=== PATIENT | male | born 1945 | race Caucasian/White ===

== ENCOUNTER 2018-06-13 07:08 | Day surgery (SDC) | payer MEDICARE, OTHER ==
[~2018-06-13] VITALS: Ht 172.7 cm; Wt 92.1 kg
[~2018-06-13 07:08] MED LIST: CELE-63 PO; DILT240C63 PO; LEVO75TA6 PO; LOSA100T8 PO; MECL-106 PO; RIVA20TA PO; TAMS0.4C2 PO; TRAM50TA2 PO; UBID300C PO; ZINC100T2 PO
[2018-06-13] MEDS ORDERED: LIDOCAINE PF 2% 5 ML (XYLOCAINE) VIAL INJ ONE (07:09)
[2018-06-13] MEDS ORDERED: LIDOCAINE PF 1% 2 ML VIAL (OR ONLY) IJ ONE (07:09)
[2018-06-13] MEDS ORDERED: LIDOCAINE JELLY 2% (XYLOCAINE) 30 ML TUBE TOP ONE (07:09)
[2018-06-13] MEDS ORDERED: NS IV 500 ML 500 ML IV PRN (07:21)
[2018-06-13 07:25] VITALS: BP 171/91
[2018-06-13] MEDS ORDERED: MIDAZOLAM 2 MG/2 ML (VERSED) VIAL IVP ONE (07:30)
[2018-06-13] MEDS ORDERED: fentaNYL INJECTION 100 MCG/2 ML AMP IVP ONE (07:30)
--- NOTE | 2018-06-13 09:05 | Progress Note-Pre Operative ---
Pre-Operative Progress Note H&P Reviewed The H&P was reviewed, patient examined and no changes noted. Time Seen by Provider: 09:05 Date H&P Reviewed: Jun 13, 2018 Time H&P Reviewed: 09:05 Pre-Operative Diagnosis: ILD JATINDER JAMA DO Jun 13, 2018 09:05
--- NOTE | 2018-06-13 09:05 | Pre-Op Note & Conscious Sedat ---
Pre-Operative Progress Note H&P Reviewed The H&P was reviewed, patient examined and no changes noted. Date H&P Reviewed: Jun 13, 2018 Time H&P Reviewed: 09:05 Pre-Op Diagnosis: ILD Conscious Sedation Pre-Proced Time Reviewed: 09:05 ASA Class: 3 Airway Mallampati Classification: ([place] appropriate class) I. II. III, IV Lungs Heart ASA score ASA 1: a normal healthy patient ASA 2: a patient with a mild systemic disease (mid diabetes, controlled hypertension, obesity ASA 3: a patient with a severe systemic disease that limits activity (angina , COPD, prior Myocardial infarction) ASA 4: a patient with an incapacitating disease that is a constant threat to life (CHF, renal failure) ASA 5: a moribund patient not expected to survive 24 hrs. (ruptured aneurysm) ASA 6: a declared brain patient whose organs are being harvested. For emergent operations, add the letter E after the classification Grade 3 Sedation Plan: Analgesia, Amnesia, Plan communicated to team members, Discussed options with patient/fam, Discussed risks with patient/fam Note The patient is an appropriate candidate to undergo the planned procedure, sedation, and anesthesia. The patient immediately re-assessed prior to indication. JATINDER JAMA DO Jun 13, 2018 09:05
--- NOTE | 2018-06-13 09:06 | Pulmonary Procedures ---
Pulmonary Procedures Date of Procedure Date of Service: Jun 14, 2018 Bronch Bronchoscopy with bronchoalveolar lavage (BAL), transbronchial washes and, brushes. Preop DX ILD Postop DX: same Complications: none After informed consent obtained and formal time out pt was sedated using Fentanyl and Versed. Bronchoscope was advanced through the nare and vocal cords. 1% lidocaine was used to anesthetize vocal cords, epiglottis, franklin, and left/right main stem bronchus. An anatomical tour was undertaken down to the segmental bronchi bilaterally. No endobronchial lesions noted. From the RML a bronchoalveolar lavage (BAL), transbronchial washes and, brushes were obtained. Pt tolerated procedure well. No complications noted. Stat CXR is pending. JATINDER JAMA DO Jun 13, 2018 09:06
[2018-06-13] MEDS ORDERED: MIDAZOLAM 2 MG/2 ML (VERSED) VIAL ONE ×3 (09:27)
[2018-06-13] MEDS ORDERED: fentaNYL INJECTION 100 MCG/2 ML AMP ONE ×2 (09:27)
[2018-06-13 10:15] VITALS: BP 141/78
--- NOTE | 2018-06-13 10:37 | Diagnostic Imaging Report ---
INDICATION: Bronchoscopy. No prior examinations are available for comparison. FINDINGS: There is cardiomegaly and ectasia of thoracic aorta. There is some chronic appearing bibasilar interstitial lung disease. There is no pleural effusion or pneumothorax. Mediastinum is unremarkable. IMPRESSION: Chronic appearing bibasilar interstitial infiltrates. Cardiomegaly and ectasia of the thoracic aorta. Dictated by: Dictated on workstation # [id number]
[2018-06-13 10:45] VITALS: BP 171/91
[2018-06-13 10:50] VITALS: BP 171/91
--- NOTE | 2018-06-13 14:21 | Diagnostic Imaging Report ---
Indication: Lung disease. Findings: Intraoperative fluoroscopy was provided for Dr. Alonso during bronchoscopy. 5 seconds of fluoroscopy was utilized. Impression: Intraoperative fluoroscopy as described. Dictated by: Dictated on workstation # [id number]
== END 2018-06-13 10:50 | disposition home or self-care (01) ==
LOC: ENDO 07:08
PROVIDERS: ATTEND Internal Medicine Critical Care Medicine
DX: J84.9 Interstitial pulmonary disease, unspecified (principal); J98.11 Atelectasis; G47.36 Sleep related hypoventilation in conditions classified elsewhere; I48.91 Unspecified atrial fibrillation; Z79.01 Long term (current) use of anticoagulants
CPT/HCPCS: 71045; 87070; 87101; 87116; 87205; 88112; 88305; 88312; 94640

== ENCOUNTER → 2019-06-17 | Outpatient (CLI) | payer MEDICARE, OTHER ==
[~2019-06-17] MED LIST changes: +CATHETER FLUSH 10 ML SYR IV PRN; -DILT240C63 PO; +DILT240C97 PO; +HOLD METFORMIN - RECEIVED CONTRAST 20 ML VIAL IV SCH; +IOHEXOL 350 MG/ML 100 ML (OMNIPAQUE 350) VIAL IV ONE; +LOSA100T57 PO; -LOSA100T8 PO; +NS 100 ML (IVPB) BAG IV ONE; -RIVA20TA PO; +RIVA20TA2 PO
[2019-06-17 09:51] LABS: BUN/CREATININE RATIO 12; CREATININE SERUM 1.05 MG/DL (0.60-1.30); GFR ESTIMATED > 60
--- NOTE | 2019-06-17 11:15 | Diagnostic Imaging Report ---
PROCEDURE: CT chest with contrast only. TECHNIQUE: Multiple contiguous axial images were obtained through the chest after administration of intravenous contrast. Auto Exposure Controls were utilized during the CT exam to meet ALARA standards for radiation dose reduction. INDICATION: Prostate cancer, restrictive lung disease and atelectasis. Comparison is made to study of 06/10/2018. FINDINGS: Diffuse centrilobular emphysema is noted with prominent interstitial markings throughout the lungs. There appears to be mild subpleural honeycombing most pronounced in the right lower lobe. There is no evidence of pulmonary mass or consolidation. No significant pleural or pericardial fluid is identified. There is no evidence of pathologic thoracic adenopathy. Coronary artery calcifications are present. Upper abdominal sections reveal cholelithiasis. There is localized degenerative disc and facet disease in the mid to upper thoracic spine region. IMPRESSION: Essentially stable chronic findings in the lungs likely related to COPD and small airway disease. There is no evidence of new or otherwise acute abnormality. Dictated by: Dictated on workstation # [id number]
== END ==
LOC: RAD 08:53
PROVIDERS: ATTEND Nurse Practitioner Family
DX: J98.11 Atelectasis (principal); J98.4 Other disorders of lung; G47.9 Sleep disorder, unspecified; C61 Malignant neoplasm of prostate; R09.02 Hypoxemia; R91.8 Other nonspecific abnormal finding of lung field
CPT/HCPCS: 36415; 71260; 82565; 84520

== ENCOUNTER → 2020-06-22 | Outpatient (CLI) | payer MEDICARE ==
[~2020-06-22] MED LIST changes: -CATHETER FLUSH 10 ML SYR IV PRN; +DILT240C92 PO; -DILT240C97 PO; -MECL-106 PO; +MECL-149 PO; -TRAM50TA2 PO; +TRM50T PO
[2020-06-22 07:20] LABS: BUN/CREATININE RATIO 15; CREATININE SERUM 1.13 MG/DL (0.60-1.30); GFR ESTIMATED > 60
--- NOTE | 2020-06-22 10:09 | Diagnostic Imaging Report ---
CT CHEST W TECHNIQUE: Multiple contiguous axial images were obtained through the chest with the use of intravenous contrast. All CT scans use one or more of the following dose optimizing techniques: automated exposure control, MA and/or KvP adjustment based on a patient size and exam type, or iterative reconstruction. INDICATION: Prostate cancer, shortness of breath, atelectasis and interstitial lung disease. COMPARISON: CT chest of 06/17/2019 FINDINGS: Lungs and airway: No endoluminal nodule within the trachea. Multifocal subpleural reticulations with traction bronchiectasis is not significantly changed since prior examination of 06/17/2019. This does have a radiation throughout the lungs and is more advanced in the bases rather than the lung apices. No honeycombing is present on today's examination. No groundglass opacities or micronodules. No consolidations. Pleura: No pleural effusion or pneumothorax. Heart and mediastinum: Thyroid is normal. No supraclavicular or axillary lymphadenopathy. Borderline enlarged right hilar lymph nodes are stable measuring approximately 1 cm in short axis and are likely due to chronic reactive process. Stable cardiomegaly without pericardial effusion. Dilated pulmonary trunk is unchanged and suggests chronic pulmonary hypertension. Normal caliber thoracic aorta without dissection. Upper abdomen: Cholelithiasis. Partially imaged large left renal cyst but given stability request for dedicated follow-up imaging. Musculoskeletal: No worrisome focal osseous lesions. IMPRESSION: 1. Stable pulmonary changes that have possible UIP pattern per Fleischner criteria. No volume loss or honeycombing has developed since prior examination. 2. Stable dilated pulmonary trunk likely due to chronic pulmonary hypertension. Dictated by: Dictated on workstation # [id number]
== END ==
LOC: RAD 08:45
PROVIDERS: ATTEND Nurse Practitioner Family
DX: J98.4 Other disorders of lung (principal); I27.20 Pulmonary hypertension, unspecified; J98.11 Atelectasis; J84.9 Interstitial pulmonary disease, unspecified; G47.9 Sleep disorder, unspecified; C61 Malignant neoplasm of prostate
CPT/HCPCS: 36415; 71260; 82565; 84520